=== PATIENT | female | born 1980 | race African-American/Black ===

== ENCOUNTER 2018-01-07 10:17 | Inpatient (IN) ==
[2018-01-07 12:29] LABS: Alanine Aminotransferase 14 U/L (13-56); Albumin 3.2 G/DL (3.4-5.0); Alkaline Phosphatase 82 U/L (45-117); Aspartate Amino Transferase 8 U/L (0-37); Bilirubin,Total < 0.39 MG/DL (0.2-1.0); Blood Urea Nitrogen 11 MG/DL (7-18); Calcium 8.8 MG/DL (8.5-10.1); Glucose 80 MG/DL (74-106); Osmolality,Calculated 276.4 MOS/KG (273-304); Potassium 3.9 MMOL/L (3.5-5.1); Sodium 140 MMOL/L (136-145); Total Protein 7.5 G/DL (6.4-8.3)
[2018-01-07 12:35] LABS: Basophils # 0.1 10*3/uL (0.0-0.2); Basophils % 0.9 % (0.0-0.8); Eosinophils # 0.6 10*3/uL (0.0-0.87); Eosinophils % 7.9 % (0.00-10.9); Hematocrit 25.2 VOL% (35.7-47.0); Immature Granulocytes % 0.3 %; Immature Granulocytes Absolute 0.02 #; Lymphocytes # 1.9 10*3/uL (1.4-4.0); Lymphocytes % 24.3 % (21.3-54.2); Mean Corpuscular HGB Conc 25.4 GM/DL (32-36); Mean Corpuscular Hemoglobin 18 PG (27-34); Mean Corpuscular Volume 70.2 FL (87-102); Mean Platelet Volume 8.2 FL (9.6-12.0); Monocytes # 0.7 10*3/uL (0.11-0.8); Neutrophils # 4.6 10*3/uL (1.4-7.4); Neutrophils % 57.6 % (38.7-73.9); Platelet Count 742 T/CUMM (130-400); Red Blood Count 3.59 MC/CUMM (3.8-5.5); Red Cell Distribution Width 17.2 % (9.3-17.3)
[2018-01-07 12:38] LABS: Hemoglobin 6.4 GM/DL (12.0-16.0)
[2018-01-07 12:38] LABS: Apearance,Urine Slightly Hazy (Clear); Bacteria,Urine Occasional /HPF (Few); Bilirubin,Urine Negative (Negative); Blood, Urine Negative (Negative); Glucose,Urine (UA) Negative (Negative); Hyaline Casts,Urine 1 /LPF (0-3); Ketones,Urine Negative (Negative); Mucus,Urine Occasional /LPF (Occasional); Nitrite,Urine Negative (Negative); Protein,Urine Negative; RBC,Urine 1 /HPF (0-4); Squamous Epithelial Cell,Urine Occasional /HPF (0-10); Urine Color Yellow (Yellow); Urine Specific Gravity 1.018 (1.001-1.035); Urine Urobilinogen < 2.0 EU/DL (0.2-1.0); WBC,Urine 2 /HPF (0-6)
[2018-01-07 13:17] LABS: Hypochromasia Slight; Stomatocytes 2+
[2018-01-07 13:19] LABS: Platelet Estimate Normal
[2018-01-07] MEDS ORDERED: SODIUM CHLORIDE 0.9% 1,000 ML IV PRN (13:36)
[2018-01-07] MEDS ORDERED: diphenhydrAMINE CAP 25 MG CAPSULE PO PRN (13:38)
[2018-01-07] MEDS ORDERED: ZALEPLON 5 MG CAPSULE PO PRN (13:38)
[2018-01-07] MEDS ORDERED: ONDANSETRON 4 MG/2 ML VIAL IV PRN (13:38)
[2018-01-07] MEDS ORDERED: ACETAMINOPHEN 325 MG TABLET PO PRN (13:38)
[2018-01-07 14:43] LABS: % Iron Saturation 3.4 % (18-50)
[2018-01-07 14:58] LABS: Ferritin 2.1 ng/ml (8-252)
[2018-01-07] MEDS: SODIUM CHLORIDE 0.9% 1,000 ML IV SCH ×2 (17:00→22:09)
[2018-01-07] MEDS: ALBUTEROL/IPRATROPIUM 3 ML NEB RESP TX SCH (20:23)
[2018-01-07] MEDS ORDERED: MONTELUKAST 10 MG TABLET PO SCH (21:00)
[2018-01-07] MEDS: BUDESONIDE/FORMOTEROL 160-4.5 INHALER 6 GM INH SCH (21:12)
[2018-01-07 23:55] LABS: Hematocrit 31.3 VOL% (35.7-47.0)
[2018-01-07 23:56] LABS: Hemoglobin 9.1 GM/DL (12.0-16.0)
[2018-01-08] MEDS: ALBUTEROL/IPRATROPIUM 3 ML NEB RESP TX SCH ×2 (00:23→07:16)
[2018-01-08] MEDS: SODIUM CHLORIDE 0.9% 1,000 ML IV SCH (05:51)
[2018-01-08 07:13] LABS: Basophils # 0.1 10*3/uL (0.0-0.2); Immature Granulocytes % 0.2 %; Immature Granulocytes Absolute 0.02 #
[2018-01-08 07:37] LABS: Bilirubin,Total 0.7 MG/DL (0.2-1.0); Calcium 8.5 MG/DL (8.5-10.1); Osmolality,Calculated 279.1 MOS/KG (273-304); Potassium 3.6 MMOL/L (3.5-5.1); Total Protein 7.3 G/DL (6.4-8.3)
[2018-01-08 07:48] LABS: Eosinophils # 0.6 10*3/uL (0.0-0.87); Eosinophils % 7.6 % (0.00-10.9); Hematocrit 34.5 VOL% (35.7-47.0); Lymphocytes # 1.6 10*3/uL (1.4-4.0); Lymphocytes % 18.6 % (21.3-54.2); Mean Corpuscular HGB Conc 27.8 GM/DL (32-36); Mean Corpuscular Hemoglobin 21 PG (27-34); Mean Corpuscular Volume 74.4 FL (87-102); Mean Platelet Volume 8.2 FL (9.6-12.0); Monocytes # 0.8 10*3/uL (0.11-0.8); Monocytes % 8.9 % (1.7-12.7); Neutrophils # 5.3 10*3/uL (1.4-7.4); Neutrophils % 63.7 % (38.7-73.9); Platelet Count 669 T/CUMM (130-400); Red Blood Count 4.64 MC/CUMM (3.8-5.5); Red Cell Distribution Width 18.6 % (9.3-17.3); White Blood Count 8.4 T/CUMM (4-12)
[2018-01-08 07:50] LABS: Hemoglobin 9.6 GM/DL (12.0-16.0)
[2018-01-08 07:56] LABS: Hypochromasia 2+; Microcytosis 1+; Ovalocytes Slight
[2018-01-08 07:57] LABS: Platelet Estimate Increased
[2018-01-08] MEDS ORDERED: PANTOPRAZOLE 40 MG TABLET PO SCH (09:00)
[2018-01-08 10:11] VITALS: BP 131/62
[2018-01-08] MEDS: BUDESONIDE/FORMOTEROL 160-4.5 INHALER 6 GM INH SCH (11:40)
[2018-01-10 09:54] LABS: Hemoglobin A1 (Alkaline) 96.9 % (96.5-98.5); Hemoglobin A2 (Alkaline) 3.1 % (1.5-3.5)
== END 2018-01-08 13:10 | disposition home or self-care (01) | DRG 812 ==
LOC: N.ED 10:17 → SUATTDRO 13:38 → N.EDINP 13:38 → N.4E 15:43
PROVIDERS: ADMIT Internal Medicine; ATTEND Hospitalist